=== PATIENT | male | born 1960 | race Caucasian/White ===

== ENCOUNTER → 2016-09-01 | Outpatient (CLI) | payer BC ==
[~2016-09-01] VITALS: Ht 180.3 cm; Wt 104.0 kg
[~2016-09-01] MED LIST: ATOR40TA28 PO; LOSA1TAB37 PO; RIVA20TA PO
[2016-09-01 13:52] VITALS: BP 122/82
== END | disposition home or self-care (01) ==
LOC: SRCNTR 13:31
PROVIDERS: ATTEND Internal Medicine Critical Care Medicine
DX: I10 Essential (primary) hypertension (principal); E78.5 Hyperlipidemia, unspecified; R55 Syncope and collapse; D68.51 Activated protein C resistance; J45.909 Unspecified asthma, uncomplicated
CPT/HCPCS: G0463